=== PATIENT | female | born 1960 | race Caucasian/White ===

== ENCOUNTER 2018-02-09 12:10 | Outpatient (CLI) | payer OTHER | END 2018-02-09 12:11 | disposition home or self-care (01) | LOC: BICMAMMO 12:10 | PROVIDERS: ATTEND Internal Medicine | DX: Z12.31 Encounter for screening mammogram for malignant neoplasm of breast (principal); Z80.3 Family history of malignant neoplasm of breast | CPT/HCPCS: 77063; 77067 ==

== ENCOUNTER 2020-02-27 11:45 | Outpatient (CLI) | payer OTHER ==
--- NOTE | 2020-02-27 15:00 | CT ---
EXAM: CT ABDOMEN AND PELVIS HISTORY: Left lower quadrant abdominal pain. Past medical history of diverticulitis COMPARISON: 09/23/2016 Procedure: Multiple contiguous axial images were obtained and a CT of the abdomen and pelvis with IV contrast. C oronal reformats were performed. FINDINGS: Lower Chest: Supine and noncalcified granulomas in the lung bases Vessels: Normal caliber aorta. No periaortic fat stranding Heart: Normal heart size. No significant pericardial fluid Abdomen: Portal vein:Patent Gallbladder: No calcified gallstones. Normal caliber wall. Liver: within normal limits. Pancreas: within normal limits. Spleen: within normal limits. Adrenals: within normal limits. Kidneys: Symmetric enhancement. No obstructive uropathy. Peritoneum: No free air or free fluid. There is stranding of the left pericolonic fat in the small am ount of fluid in the left paracolic gutter. Bowel: Gastric mucosa has a normal appearance. Multiple normal caliber small bowel loops. Ileocecal j unction has a normal appearance. Appendix is surgically absent. No inflammation of the cecal apex. Cecum, ascending colon, transverse colon and proximal/mid ascending colon have appropriate mucosal pa ttern. There is diverticulosis in the descending colon and sigmoid colon. There is mucosal thickening with pericolonic fat stranding involving the distal descending colon and proximal sigmoid colon, suggesting diverticulitis. No abscess. There is mild thickening the sigmoid mesocolon.. Mesentery and Retroperitoneum: No enlarged mesenteric or retroperitoneal lymph nodes. Abdominal Wall: Small umbilical hernia containing mesenteric fat Pelvis: Reproductive Organs: Reproductive organs are unremarkable. Pelvis: No mass, lymphadenopathy, free air or free fluid. Bladder: within normal limits. Bones: within normal limits. IMPRESSION: 1. Diverticulitis involving the sigmoid colon and distal descending colon. No evidence of abscess or perforation. CODE T
== END 2020-02-27 11:46 | disposition home or self-care (01) ==
LOC: SCSCT 11:45
PROVIDERS: ATTEND Physician Assistant Medical
DX: K57.32 Diverticulitis of large intestine without perforation or abscess without bleeding (principal); R10.32 Left lower quadrant pain
CPT/HCPCS: 74177

== ENCOUNTER 2024-02-24 17:37 | Outpatient (CLI) | payer OTHER | END 2024-02-24 17:38 | disposition home or self-care (01) | LOC: SCSRAD 17:37 | PROVIDERS: ATTEND Nurse Practitioner Family | DX: R10.30 Lower abdominal pain, unspecified (principal) | CPT/HCPCS: 74018 ==

== ENCOUNTER 2024-05-12 10:22 | Outpatient (CLI) | payer OTHER | END 2024-05-12 10:23 | disposition home or self-care (01) | LOC: SCSMRI 10:22 | PROVIDERS: ATTEND Orthopaedic Surgery Hand Surgery | DX: M47.22 Other spondylosis with radiculopathy, cervical region (principal); M48.02 Spinal stenosis, cervical region; G95.89 Other specified diseases of spinal cord; M40.50 Lordosis, unspecified, site unspecified | CPT/HCPCS: 72141 ==